=== PATIENT | male | born 1995 | race Caucasian/White ===

== ENCOUNTER 2020-11-29 12:06 | Emergency (ER) | payer OTHER ==
[~2020-11-29] VITALS: Ht 182.8 cm; Wt 90.7 kg
[2020-11-29] MEDS ORDERED: LACTATED RINGERS 1,000 ML IV STA (12:17)
[2020-11-29 12:24] LABS: BASOPHILS % (AUTO) 0 % (0-10); EOSINOPHILS % (AUTO) 0 % (0-10); HEMATOCRIT 47 % (40-54); HEMOGLOBIN 16.3 g/dL (13.3-17.7); LYMPHOCYTES # (AUTO) 1.6 10^3/uL (1.0-4.0); LYMPHOCYTES % (AUTO) 22 % (12-44); MEAN CORPUSCULAR HEMOGLOBIN 30 pg (25-34); MEAN CORPUSCULAR HGB CONC 35 g/dL (32-36); MEAN CORPUSCULAR VOLUME 87 fL (80-99); MEAN PLATELET VOLUME 9.5 fL (9.0-12.2); MONOCYTES # (AUTO) 0.6 10^3/uL (0.0-1.0); MONOCYTES % (AUTO) 7 % (0-12); NEUTROPHILS # (AUTO) 5.3 10^3/uL (1.8-7.8); NEUTROPHILS % (AUTO) 70 % (42-75); PLATELET COUNT 237 10^3/uL (130-400); WHITE BLOOD COUNT 7.6 10^3/uL (4.3-11.0)
--- NOTE | 2020-11-29 12:24 | ED Chest Pain ---
General Stated Complaint: CP,ARM NUMBNESS,CONFUSION Source: patient Exam Limitations: no limitations History of Present Illness Date Seen by Provider: Nov 29, 2020 Time Seen by Provider: 12:09 Initial Comments Patient presents the ER by private conveyance with chief complaint of chest pain since Saturday, approximately 3 days ago and today he became nauseated and felt like he was going to pass out on the way to the ER. He does not have a history of heart disease. No family medical history of significance. He does not smoke or vaporize and does not use drugs. He has an occasional alcoholic drink, had 1 beer yesterday evening after dinner. He states he has not been sweating all day but thinks it is not very hot outside in the low 80s. He is still having some nausea. Patient endorses anxiety as well as tingling in his fingertips. Allergies and Home Medications Allergies Coded Allergies: No Known Drug Allergies (Unverified , 11/29/20) Home Medications Hydroxyzine Pamoate 25 Mg Capsule, 25 MG PO Q6H PRN for ANXIETY Prescribed by: ROZ MEHTA on 11/29/20 1401 Patient Home Medication List Home Medication List Reviewed: Yes Review of Systems Review of Systems Constitutional: No chills, No fever; malaise, weakness EENTM: No Blurred Vision, No Double Vision Respiratory: Denies Cough; Shortness of Air Cardiovascular: See HPI, Chest Pain; Denies Irregular Heart Rate; Lighthe adedness Gastrointestinal: Denies Abdomen Distended, Denies Abdominal Pain; Nausea; Denies Poor Fluid Intake; Vomiting Genitourinary: Denies Burning, Denies Drainage Musculoskeletal: No back pain, No joint pain All Other Systems Reviewed Negative Unless Noted: Yes Past [place]-Agqhcs-Ab[facility] Hx Patient Social History Alcohol Use: Denies Use Smoking Status: Never a Smoker Physical Exam Vital Signs Vital Signs - First Documented 11/29/20 12:06 Temp 37.6 Pulse 104 Resp 14 B/P (MAP) 132/94 (107) Pulse Ox 99 O2 Delivery Nasal Cannula Capillary Refill : Height, Weight, BMI Height: '" Weight: lbs. oz. kg; BMI Method: General Appearance: WD/WN, Mild Distress HEENT: PERRL/EOMI, TMs Normal; No Moist Mucous Membranes Neck: Full Range of Motion, Normal Inspection Respiratory: Lungs Clear, Normal Breath Sounds, No Accessory Muscle Use, No Respiratory Distress Cardiovascular: Regular Rate, Rhythm, No Edema, Normal Peripheral Pulses Gastrointestinal: Normal Bowel Sounds, Non Tender, Soft Extremity: Normal Capillary Refill, Normal Inspection, No Pedal Edema Neurologic/Psychiatric: Alert, Oriented x3, No Motor/Sensory Deficits, medical imaging technologist II- XII Norm as Tested (Very anxious affect), Other Skin: Normal Color, Warm/Dry; No Damp, No Diaphoresis Progress/Results/Core Measures Results/Orders Lab Results Laboratory Tests Test 11/29/20 12:15 Range/Units White Blood Count 7.6 4.3-11.0 10^3/uL Red Blood Count 5.43 4.30-5.52 10^6/uL Hemoglobin 16.3 13.3-17.7 g/dL Hematocrit 47 40-54 % Mean Corpuscular Volume 87 80-99 fL Mean Corpuscular Hemoglobin 30 25-34 pg Mean Corpuscular Hemoglobin Concent 35 32-36 g/dL Red Cell Distribution Width 13.0 10.0-14.5 % Platelet Count 237 130-400 10^3/uL Mean Platelet Volume 9.5 9.0-12.2 fL Immature Granulocyte % (Auto) 0 % Neutrophils (%) (Auto) 70 42-75 % Lymphocytes (%) (Auto) 22 12-44 % Monocytes (%) (Auto) 7 0-12 % Eosinophils (%) (Auto) 0 0-10 % Basophils (%) (Auto) 0 0-10 % Neutrophils # (Auto) 5.3 1.8-7.8 10^3/uL Lymphocytes # (Auto) 1.6 1.0-4.0 10^3/uL Monocytes # (Auto) 0.6 0.0-1.0 10^3/uL Eosinophils # (Auto) 0.0 0.0-0.3 10^3/uL Basophils # (Auto) 0.0 0.0-0.1 10^3/uL Immature Granulocyte # (Auto) 0.0 0.0-0.1 10^3/uL Sodium Level 143 135-145 MMOL/L Potassium Level 3.8 3.6-5.0 MMOL/L Chloride Level 108 H 98-107 MMOL/L Carbon Dioxide Level 23 21-32 MMOL/L Anion Gap 12 5-14 MMOL/L Blood Urea Nitrogen 15 7-18 MG/DL Creatinine 1.07 0.60-1.30 MG/DL Estimat Glomerular Filtration Rate > 60 BUN/Creatinine Ratio 14 Glucose Level 97 70-105 MG/DL Calcium Level 9.9 8.5-10.1 MG/DL Corrected Calcium 8.5-10.1 MG/DL Magnesium Level 1.6 1.6-2.4 MG/DL Total Bilirubin 0.5 0.1-1.0 MG/DL Aspartate Amino Transf (AST/SGOT) 20 5-34 U/L Alanine Aminotransferase (ALT/SGPT) 49 0-55 U/L Alkaline Phosphatase 59 40-136 U/L Myoglobin 44.1 10.0-92.0 NG/ML Troponin I < 0.028 <0.028 NG/ML Total Protein 7.5 6.4-8.2 GM/DL Albumin 4.8 H 3.2-4.5 GM/DL Lipase 44 8-78 U/L My Orders Orders - TYSON,ROZ J Continuous Ekg Monitoring (11/29/20 12:10) Ekg Tracing (11/29/20 12:10) Cbc With Automated Diff (11/29/20 12:16) Magnesium (11/29/20 12:16) Chest 1 View, Ap/Pa Only (11/29/20 12:16) Comprehensive Metabolic Panel (11/29/20 12:16) Myoglobin Serum (11/29/20 12:16) Protime With Inr (11/29/20 12:16) Partial Thromboplastin Time (11/29/20 12:16) O2 (11/29/20 12:16) Lipid Panel (11/30/20 06:00) Ed Iv/Invasive Line Start (11/29/20 12:16) Lipase (11/29/20 12:16) Fibrin Degradation Products (11/29/20 12:16) Aspirin Chewable Tablet (Baby Aspirin Ch (11/29/20 12:30) Ed Iv/Invasive Line Start (11/29/20 12:17) Lactated Ringers (Lr 1000 Ml Iv Solution (11/29/20 12:30) Lactated Ringers (Lr 1000 Ml Iv Solution (11/29/20 12:17) Troponin I (11/29/20 12:16) Ondansetron Injection (Zofran Injectio (11/29/20 12:30) Ketorolac Injection (Toradol Injection) (11/29/20 14:00) Medications Given in ED Current Medications Medications Dose Ordered Sig/Campos Route Start Time Stop Time Status Last Admin Dose Admin Aspirin 324 mg ONCE ONCE PO 11/29/20 12:30 11/29/20 12:31 DC 11/29/20 12:30 324 MG Ketorolac Tromethamine 30 mg ONCE ONCE IVP 11/29/20 14:00 11/29/20 14:01 11/29/20 13:59 30 MG Lactated Ringer's 1,000 ml @ 0 mls/hr Q0M ONCE IV 11/29/20 12:30 11/29/20 12:31 DC 11/29/20 12:31 1,000 MLS/HR Ondansetron HCl 4 mg ONCE ONCE IVP 11/29/20 12:30 11/29/20 12:31 DC 11/29/20 12:30 4 MG Vital Signs/I&O 11/29/20 11/29/20 12:06 12:06 Temp 37.6 Pulse 104 Resp 14 B/P (MAP) 132/94 (107) Pulse Ox 99 O2 Delivery Nasal Cannula Room Air Progress Progress Note : Time: 13:44 Progress Note The patient is not sweating when he came in so some concern was given for anxiety attack versus heat injury. There may be some combination of this however his labs are unremarkable. The patient states he thinks he just had an anxiety attack and this fits his symptoms of peripheral paresthesias. Will recommend follow-up with primary care if this becomes more of an issue. For now we will provide him with a couple tablets of Vistaril encourage him to drink plenty of fluids. Initial ECG Impression Date: Nov 29, 2020 Initial ECG Impression Time: 12:13 Initial ECG Rate: 94 Initial ECG Rhythm: Normal Sinus Initial ECG Intervals: Normal Initial ECG Impression: Normal, Nonspecific Changes Initial ECG Comparisson: No Previous ECG Available Comment Normal, likely age-related sinus arrhythmia without clinically relevant ST elevation or depression. Diagnostic Imaging Diagonstic Imaging: Xray Plain Films/CT/US/NM/MRI: chest Comments [facility]. [place], [place] NAME: LUPEEDSONISAAK W [facility] REC#: [id number] PT STATUS: REG ER : 1995 PHYSICIAN: ROZ MEHTA MD ADMIT DATE: 11/29/20/ER Draft Date of Exam:11/29/20 CHEST 1 VIEW, AP/PA ONLY EXAMINATION: AP upright portable chest INDICATION: Chest pain. COMPARISON: None available. FINDINGS: The lungs are clear and the pulmonary vasculature is normal. No pneumothorax or large pleural effusion. Heart size and mediastinal contours are normal. No acute osseous abnormalities identified. IMPRESSION: No radiographic evidence of acute chest disease. Dictated on workstation # [id number] Dict: 11/29/20 1302 Trans: 11/29/20 1304 CVB [id number] Interpreted by: EDGAR MALONE DO Electronically signed by: Reviewed: Reviewed by Me Departure Impression Primary Impression: Anxiety attack Additional Impression: Chest wall pain Disposition: HOME, SELF-CARE Condition: Stable Departure-Patient Inst. Decision time for Depature: 13:45 Patient Instructions: Anxiety, Adult (DC), LOCAL PHYSICIAN LIST, Pleuritic Chest Pain (DC) Add. Discharge Instructions: Drink plenty of fluids. If you have another anxiety attack, you can take Vistaril 1 tablet every 6 hours as necessary. This may cause some mild sedation. Tylenol 1000 mg every 8 hours as necessary for chest pain. Ibuprofen 800 mg every 8 hours as necessary for pain. Scripts Hydroxyzine Pamoate (Vistaril) 25 Mg Capsule 25 MG PO Q6H PRN for ANXIETY, #15 CAP 0 Refills Prov: ROZ MEHTA 11/29/20 Work/School Note: Work Release Form Date Seen in the Emergency Department: Nov 29, 2020 Return to Work: Nov 30, 2020 Restrictions: No Restrictions ROZ MEHTA Nov 29, 2020 12:24
[2020-11-29] MEDS ORDERED: ASPIRIN 81 MG CHEW (CHILDREN'S ASA) PO ONE (12:30)
[2020-11-29] MEDS ORDERED: LACTATED RINGERS 1,000 ML IV ONE (12:30)
[2020-11-29] MEDS ORDERED: ONDANSETRON 4 MG/2 ML (SDV) Z0FRAN IVP ONE (12:30)
[2020-11-29 12:36] LABS: ALBUMIN 4.8 GM/DL (3.2-4.5); CHLORIDE 108 MMOL/L (98-107); POTASSIUM 3.8 MMOL/L (3.6-5.0); SODIUM 143 MMOL/L (135-145)
[2020-11-29 12:37] LABS: CALCIUM 9.9 MG/DL (8.5-10.1)
[2020-11-29 12:38] LABS: GLUCOSE 97 MG/DL (70-105); TOTAL PROTEIN 7.5 GM/DL (6.4-8.2)
[2020-11-29 12:39] LABS: CARBON DIOXIDE 23 MMOL/L (21-32)
[2020-11-29 12:40] LABS: BILIRUBIN,TOTAL 0.5 MG/DL (0.1-1.0)
[2020-11-29 12:42] LABS: ALKALINE PHOSPHATASE 59 U/L (40-136); CREATININE SERUM 1.07 MG/DL (0.60-1.30); GFR ESTIMATED > 60
[2020-11-29 12:43] LABS: BUN/CREATININE RATIO 14
[2020-11-29 12:45] LABS: ALANINE AMINOTRANSFERASE 49 U/L (0-55); MAGNESIUM 1.6 MG/DL (1.6-2.4)
[2020-11-29 12:46] LABS: LIPASE 44 U/L (8-78)
--- NOTE | 2020-11-29 13:05 | Diagnostic Imaging Report ---
EXAMINATION: AP upright portable chest INDICATION: Chest pain. COMPARISON: None available. FINDINGS: The lungs are clear and the pulmonary vasculature is normal. No pneumothorax or large pleural effusion. Heart size and mediastinal contours are normal. No acute osseous abnormality is identified. IMPRESSION: No radiographic evidence of acute chest disease. Dictated by: Dictated on workstation # [id number]
[2020-11-29] MEDS ORDERED: KETOROLAC 30 MG/ML VIAL IVP ONE (14:00)
[2020-11-29] MEDS ORDERED: HYDR25CA PO (14:01)
[2020-11-29 14:11] VITALS: BP 126/77
== END 2020-11-29 14:11 | disposition home or self-care (01) ==
LOC: ER 12:09
DX: F41.9 Anxiety disorder, unspecified (principal); R07.89 Other chest pain
CPT/HCPCS: 71045; 80053; 83690; 83735; 83874; 84484; 85025; 93005

== ENCOUNTER → 2021-03-30 | Outpatient (CLI) | payer SELFPAY ==
[~2021-03-30] MED LIST: HYDR25CA PO; RT-ALBUTEROL SULF 2.5 MG/3 ML PRE-MIX VIAL INH ONE
== END ==
LOC: RT 13:20
PROVIDERS: ATTEND Nurse Practitioner Family
DX: J45.40 Moderate persistent asthma, uncomplicated (principal)
CPT/HCPCS: 94060; 94726; 94729